=== PATIENT | male | born 1940 | race Caucasian/White ===

== ENCOUNTER 2017-10-25 15:19 | Inpatient (IN) | payer OTHER, MEDICARE ==
[~2017-10-25] VITALS: Ht 193 cm; Wt 89.7 kg
[~2017-10-25 15:19] MED LIST changes: -AMOXICILLIN500 MG PO; -NITROGLYCERIN0.4 MG SL; -PREDNISONE10 MG PO
[2017-10-25] MEDS ORDERED: NITROGLYCERIN0.4 MG SL (17:39)
--- NOTE | 2017-10-25 18:57 | NUR ---
PT ARRIVED TO ROOM 127 VIA STRETCHER. PT TRANSFERRED TO BED WITH 2 PERSON ASSIST. VITAL SIGNS TAKEN AND PT WEIGHED PER BED. DR. JEROME IN TO ASSESS PT. PT REMAINS ON DILTIAZEM GTT INCREASED TO 15MG/HR. LOPRESSOR 5MG GIVEN IV PER DR. JEROME ORDER, DR. JEROME AT BEDSIDE.
--- NOTE | 2017-10-25 20:00 | NUR ---
PT STOOD TO VOID AND LAURA WELL. CONVERTED TO SR AT APPROX 1934.
--- NOTE | 2017-10-25 20:30 | NUR ---
RESTING IN BED. TITRATING CARDIZEM DOWN, NOW 7.5MG. PT HAS HARSH MOIST COUGH THAT INCREASES WITH DEEP BREATHING.
--- NOTE | 2017-10-25 21:59 | NUR ---
CARDIZEM TITRATED OFF. PT C/O BEING TOO WARM, BLANKETS OFF.
--- NOTE | 2017-10-26 00:39 | NUR ---
HAS BEEN SLEEPING BUT COUGHS FREQ DUSTIN SLEEP. STOOD AT BEDSIDE TO TRY TO VOID WITHOUT SUCCUSS. BLADDER SCANNED [id number] . PT HAS ALSO BEEN DIAPHORETIC REQ GOWN AND DRAW SHEET CHANGE. PT HAD MULT BLANKETS ON AND TEMP VERY VICE INVESTIGATOR ROOM, IS AFEBRILE. DR JEROME CALLED WILL GIVE 1 LLR THEN MAINTENANCE AT 100ML/HR
--- NOTE | 2017-10-26 10:39 | NUR ---
PT AWAKE EATING REG BREAKFAST, A.M. MEDS GIVEN, ASSESSMENT COMPLETED, PT DENIES C/O AT THIS TIME. R.T. HERE AND NEB TX GIVEN AFTER BREAKFAST. VITAL SIGNS TAKEN BY HEEL SANDER RUBBER. 0900 COTTON GRADER HERE AND 2D ECHO COMPLETED. PT UP TO BATHROOM WITH ONE PERSON ASSIST VOIDING 400 MLS DARK YELLOW URINE. PT AMBULATED TO CHAIR WITH ONE PERSON ASSIST.
--- NOTE | 2017-10-26 10:53 | NUR ---
TELE #[address] Kyleigh CARLIN R.N.
--- NOTE | 2017-10-26 11:08 | NUR ---
NOTICED BIRTHDATE WRONG ON EMAR. VERIFIED WITH PATIENT CORRECT BIRTHDATE. CALLED ADMITTING TO HAVE IT CHANGED TO CORRECT DATE. 36 IS CORRECT.
--- NOTE | 2017-10-26 11:20 | NUR ---
PT AMBULATED TO BATHROOM WITH MINIMAL ASSIST, VOIDED 500 MLS ORANGE YELLOW URINE. PT AMBULATED BACK TO BETH CHAIR WITH MINIMAL ASSIST.
--- NOTE | 2017-10-26 12:08 | NUR ---
NURSE IN ROOM
--- NOTE | 2017-10-26 12:38 | NUR ---
REPORT RECIEVED FROM JARROD KYLE, IN CCU. PATIENT TO TRANSFER TO ROOM 110.
--- NOTE | 2017-10-26 12:58 | NUR ---
REPORT GIVEN TO NATALY Berrios AND PT TRANSFERRED TO MED/SURG ROOM 110 VIA BETH CHAIR WITH CONTINUOUS [employer] MINER.
--- NOTE | 2017-10-26 13:17 | NUR ---
PATIENT ARRIVED TO ROOM 110. PATIENT RESTING IN CHAIR, USING I/S. COUGH SOUNDS PRODUCTIVE. PATIENT REPORTS CHRONIC BACK PAIN AT 7/10 AND "THIS IS USUAL FOR ME." PATIENT DENIES NAUSEA OR NEEDS AT THIS TIME, IS ORIENTED TO CALL LIGHT AND FACILITY.
--- NOTE | 2017-10-26 13:53 | NUR ---
PT NEEDS PHONE AND HIS IS NOT WORKING. PUT IN A WORK ORDER
--- NOTE | 2017-10-26 14:02 | NUR ---
PATIENT UP TO BATHROOM TO VOID WITH STANDBY ASSIST. PATIENT USES CALL LIGHT APPROPRIATELY AND IS MOSTLY STEADY ON HIS FEET.
--- NOTE | 2017-10-26 14:36 | NUR ---
PT SITTING IN CHAIR, SAID HE IS FEELING MUCH BETTER THAN YESTERDAY. HE WAS TRYING TO MAKE A CALL, BUT PHONE WASN'T WORKING. I TRIED BUT HAD NO LUCK. JARROD LAZARO CAME IN AND GOT A NEW PHONE FOR HIM. WILL CONTINUE TO FOLLOW
--- NOTE | 2017-10-26 14:45 | NUR ---
PT DOING WELL. HAD TO RETAKE VITALS FOR NURSE. JYOTI LIGHT IS IN REACH.
--- NOTE | 2017-10-26 16:07 | NUR ---
pt up in chair. walked with physical therapy. stated 7/10 pain in back. gave 500 mg tylonol. pt using acapella to loosen secretions. pearls given for cough.
--- NOTE | 2017-10-26 16:42 | NUR ---
PT IN CHAIR AWAKE. PT SAID HIS BACK HURT. LET NURSE TRACI KNOW.
--- NOTE | 2017-10-26 18:07 | NUR ---
iv dressing leaking, iv flushing fine. changed dressing. tried flushing again. infiltrated.iv removed.will replace.
--- NOTE | 2017-10-26 19:18 | NUR ---
ADMITTED ON 10/25 WITH A FIB W/ RVR. ON TELI 2. IV IN RIGHT HAND PLACED TODAY 20G. CARDIAC DIET. SBA. PAIN UNRELEIVED BY TYLENOL. PO ANTIBIOTICS. PLAN TO DISCHARGE 10/27.
--- NOTE | 2017-10-26 20:35 | NUR ---
PT REPORTS TAKING TRAMADOL AT HOME FOR HIS BACK PAIN. STATES "ITS THE ONLY MEDICATION THAT WORKS FOR MY BACK PAIN, THAT CELEBREX DOES NOTHING." DISCUSSED WITH DR MCKNIGHT. NEW ORDERS FOR TRAMADOL RECIEVED AND PLACED.
--- NOTE | 2017-10-26 20:49 | NUR ---
PT SITTING UP IN CHIAR. ALERT AND ORIENTED X4, PLEASENT DEMEANOR. RATES PAIN AT 8/10, CELEBREX AND TRAMADOL GIVEN. TELE IN PLACE, SR AT THE MOMENT AND DAYSHIFT REPORTED ITS BEEN UNCHANGED SINCE BEING ON THE FLOOR. PT HAS CALL LIGHT IN REACH. NO FURHTER NEEDS.
--- NOTE | 2017-10-26 22:00 | NUR ---
ASSISTED PT UP TO THE BATHROOM, USED FWW, WAS UNABLE TO VOID. PRIMARY NURSE AWARE
--- NOTE | 2017-10-27 00:59 | NUR ---
PT UP TO BATHROOM TO VOID. BACK TO BED. NO FURTHER NEEDS. CALL LIGHT IN REACH.
--- NOTE | 2017-10-27 01:13 | NUR ---
PT'S PAIN IS AT 7/10, PT REPORTS PAIN IS "BETTER," NOW THAT HE WAS GIVEN THE TRAMADOL. NO FURTHER NEEDS. CALL LIGHT IN REACH.
--- NOTE | 2017-10-27 03:09 | NUR ---
PT APPEARS ASLEEP
--- NOTE | 2017-10-27 03:47 | NUR ---
pt complained of 8/10 pain. gave tramadol for pain. no further needs.
--- NOTE | 2017-10-27 05:27 | NUR ---
PT HAD UNEVENTFUL NIGHT. SLEPT WELL THROUGHOUT SHIFT. TELE #2, BEEN IN SINUS RHYTHM THIS SHIFT. SCHEDULED CELEBREX AND PRN ULTRAM GIVEN FOR CHRONIC BACK PAIN. 1 PERSON ASSIST. PT ALERT AND ORIENTED X4, PLEASENT. HARD OF HEARING. BED ALARM FOR SAFETY.
--- NOTE | 2017-10-27 07:10 | NUR ---
REPORT GIVEN FROM ZEHRA GARAY. PATITENT SLEEPING IN CHAIR. RR EVEN AND UNLABORED. CALL LIGHT WITHIN REACH.
--- NOTE | 2017-10-27 07:45 | NUR ---
pt sitting up in the chair. breakfast tray removed from room; pt ate 70% of breakfast. pt given washcloth for face and linens changed.
--- NOTE | 2017-10-27 09:00 | NUR ---
PATIENT NAUSEATED AND DRY HEAVING. CALLED DR. JENKINS FOR NEW ORDER OF PHENERGAN. GAVE 12.5MG OF PHENERGAN IV DILAUDID IN 20 MLS OF NS.
--- NOTE | 2017-10-27 09:00 | NUR ---
PATIENT FINISHED 100 PERCENT OF BREAKFAST. DRINKING COFFEE AT THIS TIME. VITALS TAKEN. LUNGS ARE CLEAR BUT DIMINISHED IN ALL LOBES EXCEPT R UPPER LOBE. SLIGHT EXP WHEEZE HEARD. PATIENT HREAT RATE REGULAR. TEL [address] CURRENT HR 66. NO SWELLING AT THIS TIME. IN LOWER EXTREMITYS. PAITENT REPORTS COUGH IMPROVING WITH TESSLON PERALS. MORNING MEDICATIONS GIVEN. PATIENT REPORTED HAVING 7/10 PAIN. REQUESTING ULTRAM AT THIS TIME. GIVEN 100MG OF ULTRAM. PATIENT STATING THAT HE IS GOING TO DISCHARGE TODAY.
--- NOTE | 2017-10-27 09:20 | NUR ---
PATIENT RESTING IN BED. WOKE WHEN WENT TO ROOM. REPORTED FEELING A LITTLE BETTER. NO MORE ATTEMPTS TO VOMIT AT THIS TIME. WILL CONTINUE TO MONITOR. CALL LIGHT WITHIN REACH. EMESIS BAG IN BED.
--- NOTE | 2017-10-27 09:50 | NUR ---
DR. MCKNIGHT IN ROOM ROUNDING ON PATIENT.
[2017-10-27] MEDS ORDERED: AMOXICILLIN500 MG PO (10:00)
--- NOTE | 2017-10-27 10:00 | NUR ---
PATIENT GIVEN DISCHARGE EDUCATION. PATIENT TO FOLLOW UP WITH DR. WALKER. DEVI STATING THAT HE UNDERSTANDS INFORMATION. PATIENTS IV TAKEN OUT AND GETTING OWN CLOTHING IN PLACE.
[2017-10-27] MEDS ORDERED: PREDNISONE10 MG PO (10:01)
--- NOTE | 2017-10-27 10:56 | NUR ---
PHARMACY IN ROOM TO GIVEN DISCHARGE EDUCATION TO PATIENT.
--- NOTE | 2017-10-27 19:36 | EKG ---
[facility] [address] [place], [place] [address] Signed Atrial flutter with 2:[address] and T wave abnormality Abnormal ECG No previous ECGs available Confirmed by MARGO MCKNIGHT MD ([id number] on 10/27/2017 7:35:46 PM Electronically Signed By: MARGO MCKNIGHT MD 10/27/17 1936 PATIENT NAME: CORRINE ADAM SR Electrocardiogram DATE OF : 36 PHYSICIAN: MARGO MCKNIGHT MD REPORT #: [id number] REPORT IS CONFIDENTIAL AND NOT TO BE RELEASED WITHOUT AUTHORIZATION
== END 2017-10-27 11:36 | disposition home or self-care (01) | DRG 191 ==
LOC: ED 15:19 → CCU 18:14 → EDBD 18:14 → MS 10-26 13:18
PROVIDERS: ADMIT Internal Medicine
DX: J44.1 Chronic obstructive pulmonary disease with (acute) exacerbation (principal); J96.10 Chronic respiratory failure, unspecified whether with hypoxia or hypercapnia; I48.0 Paroxysmal atrial fibrillation; I25.10 Atherosclerotic heart disease of native coronary artery without angina pectoris; E78.5 Hyperlipidemia, unspecified; K21.9 Gastro-esophageal reflux disease without esophagitis; J01.00 Acute maxillary sinusitis, unspecified; Z95.5 Presence of coronary angioplasty implant and graft; E03.9 Hypothyroidism, unspecified; I10 Essential (primary) hypertension; M19.90 Unspecified osteoarthritis, unspecified site; Z87.891 Personal history of nicotine dependence
CPT/HCPCS: 36415; 71010; 80048; 80053; 83735; 83880; 84484; 85025; 93005; 93010; 93306; 94640; 94667; 94668; 94760; J1650; J7030; J7120; J7512

== ENCOUNTER → 2017-10-25 | Emergency (ER) ==
[~2017-10-25] MED LIST: ADVAIR 250-501 EACH INH; ADVAIR 500-501 EACH IH; AMOXICILLIN500 MG PO; ASPIR-LOW81 MG PO; CELECOXIB200 MG PO; DOXYCYCLINE HY100 MG PO; FLONASE ALLERG9.9 ML NAS; FLUZONE HI180 MCG/07 IM; FOLIC ACID0.8 MG PO; FUROSEMIDE20 MG PO; LEVAQUIN750 MG PO; NEXIUM20 MG PO; NITROGLYCERIN0.4 MG SL; OXYCONTIN30 MG PO; OXYCONTIN40 MG PO; PLAVIX75 MG PO; PRAVACHOL40 MG PO; PREDNISONE10 MG PO; PREDNISONE20 MG PO; SOTALOL80 MG PO; SYNTHROID175 MCG PO; VITAMIN D-32000 UNI1 PO; VITAMIN D250000 UNIT PO; VITAMIN D32000 UNI1 PO; ZESTRIL20 MG PO
== END ==
LOC: ED 15:16
DX: R00.0 Tachycardia, unspecified (principal)

== ENCOUNTER 2020-01-29 21:06 | Inpatient (IN) | payer MEDICARE ==
[~2020-01-29] VITALS: Ht 193 cm; Wt 107.5 kg
[~2020-01-29 21:06] MED LIST changes: +AMOXICILLIN500 MG PO; +NITROGLYCERIN0.4 MG SL; +PREDNISONE10 MG PO
--- NOTE | 2020-01-30 08:15 | EKG ---
[facility] [address] [place], [place] [address] Signed Normal sinus rhythm with sinus arrhythmia Possible Left atrial enlargement Anterior infarct , age undetermined Abnormal ECG Confirmed by MARGO MCKNIGHT MD ([id number] on 01/30/2020 8:15:35 AM Electronically Signed By: MARGO MCKNIGHT MD 01/30/20814 PATIENT NAME: CORRINE ADAM SR Electrocardiogram DATE OF : 36 PHYSICIAN: MARGO MCKNIGHT MD REPORT #: [id number] REPORT IS CONFIDENTIAL AND NOT TO BE RELEASED WITHOUT AUTHORIZATION
[2020-01-30] MEDS ORDERED: VENTOLIN HFA18 GM INH (16:00)
[2020-01-30] MEDS ORDERED: ALBUTEROL1.25 MG/3 INH (16:09)
[2020-01-30] MEDS ORDERED: BUDESONIDE-FO10.2 G1 PO (16:11)
[2020-01-30] MEDS ORDERED: CEFDINIR300 MG PO ×2 (16:14→16:17)
[2020-01-30] MEDS ORDERED: KLONOPIN0.5 MG PO (16:47)
[2020-01-30] MEDS ORDERED: CYCLOBENZAPRINE10 MG PO (16:49)
[2020-01-30] MEDS ORDERED: NEURONTIN100 MG PO (16:51)
[2020-01-30] MEDS ORDERED: LEVOXYL150 MCG PO (16:53)
[2020-01-30] MEDS ORDERED: LISINOPRIL20 MG PO (16:55)
[2020-01-30] MEDS ORDERED: MELOXICAM15 MG PO (16:56)
[2020-01-30] MEDS ORDERED: ULTRAM50 MG PO (16:58)
[2020-02-03] MEDS ORDERED: CEFPODOXIME PR200 MG PO (14:37)
[2020-02-03] MEDS ORDERED: DOXYCYCLINE HY100 MG PO (14:37)
[2020-02-03] MEDS ORDERED: DILTIAZEM 24HR240 M1 PO (14:38)
[2020-02-03] MEDS ORDERED: TAMSULOSIN HCL0.4 MG PO (14:39)
== END 2020-02-03 16:45 | disposition home or self-care (01) | DRG 193 ==
LOC: ED 21:06 → CCU 23:38 → MS 02-02 12:15
PROVIDERS: ADMIT Internal Medicine
DX: J13 Pneumonia due to Streptococcus pneumoniae (principal); I21.A1 Myocardial infarction type 2; J44.0 Chronic obstructive pulmonary disease with (acute) lower respiratory infection; J96.11 Chronic respiratory failure with hypoxia; J15.8 Pneumonia due to other specified bacteria; E87.5 Hyperkalemia; I48.0 Paroxysmal atrial fibrillation; I10 Essential (primary) hypertension; E78.5 Hyperlipidemia, unspecified; M54.9 Dorsalgia, unspecified; G89.29 Other chronic pain; K21.9 Gastro-esophageal reflux disease without esophagitis; I25.10 Atherosclerotic heart disease of native coronary artery without angina pectoris; R33.9 Retention of urine, unspecified; K59.00 Constipation, unspecified; Z88.8 Allergy status to other drugs, medicaments and biological substances; Z99.81 Dependence on supplemental oxygen; Z87.891 Personal history of nicotine dependence; Z79.1 Long term (current) use of non-steroidal anti-inflammatories (NSAID); Z79.02 Long term (current) use of antithrombotics/antiplatelets; Z79.82 Long term (current) use of aspirin; Z79.51 Long term (current) use of inhaled steroids; Z79.52 Long term (current) use of systemic steroids; Z79.899 Other long term (current) drug therapy
CPT/HCPCS: 36415; 51701; 51798; 71045; 80048; 80053; 83735; 83880; 84132; 84484; 85025; 85610; 93005; 93010; 94640; 94660; 99285-25; J0610; J0696; J1650; J1940; J3475